=== PATIENT | female | born 1940 | race Caucasian/White ===

== ENCOUNTER 2019-04-13 02:50 | Inpatient (IN) | payer MEDICARE, OTHER ==
[~2019-04-13] VITALS: Ht 170.2 cm; Wt 81.8 kg
[2019-04-13] MEDS ORDERED: ondansetron/PF 4mg/2ml inj IV ONE (03:20)
[2019-04-13] MEDS ORDERED: normal saline 1000ML IV soln IVB ONE (03:20)
[2019-04-13 03:33] LABS: BASOPHILS % (AUTO) 0.3 % (0-1); EOSINOPHILS # (AUTO) 0.4 X10'3 (0-0.9); EOSINOPHILS % (AUTO) 5.4 % (0-6); HEMOGLOBIN 13.8 g/dl (12.0-16.0); LYMPHOCYTES # (AUTO) 2.4 X10'3 (1.1-4.8); LYMPHOCYTES % (AUTO) 31.1 % (21-51); MEAN CORPUSCULAR HGB CONC 33.8 g/dL (33.0-36.5); MEAN CORPUSCULAR VOLUME 94.8 FL (78-98); MONOCYTES # (AUTO) 0.6 X10'3 (0-0.9); MONOCYTES % (AUTO) 7.8 % (2-12); NEUTROPHILS # (AUTO) 4.2 X10'3 (1.8-7.7); NEUTROPHILS % (AUTO) 55.4 % (42-75); PLATELET COUNT 176 X10'3 (140-440); RED BLOOD COUNT 4.32 X10'6 (4.20-5.60); RED CELL DISTRIBUTION WIDTH 13.4 % (11.5-14.5); WHITE BLOOD COUNT 7.6 X10'3 (4.5-11.0)
[2019-04-13 03:44] LABS: PARTIAL THROMBOPLASTIN TIME 24 SECONDS (22-32)
[2019-04-13 03:50] LABS: ALANINE AMINOTRANSFERASE 30 U/L (12-78); ALBUMIN 4.1 G/DL (3.4-5.0); ALBUMIN/GLOBULIN RATIO 1.1 (1.1-1.5); ALKALINE PHOSPHATASE 74 IU/L (46-116); ANION GAP 12 (8-16); ASPARTATE AMINO TRANSFERASE 23 U/L (10-37); BILIRUBIN,TOTAL 0.4 MG/DL (0.1-1.0); BLOOD UREA NITROGEN 14 MG/DL (7-18); CALCIUM 10.2 MG/DL (8.5-10.1); CHLORIDE 102 MMOL/L (99-107); CREATININE 1.08 MG/DL (0.40-0.90); GLUCOSE 175 MG/DL (70-104); POTASSIUM 3.8 MMOL/L (3.5-5.1); SODIUM 140 MMOL/L (135-145); TOTAL CARBON DIOXIDE 26.4 MMOL/L (24-32); TOTAL PROTEIN 7.9 G/DL (6.4-8.2); eGFR 49 ML/MIN
[2019-04-13 04:01] LABS: MAGNESIUM 1.8 MG/DL (1.5-2.4); TROPONIN I < 0.04 NG/ML (0.0-0.05)
[2019-04-13 04:25] LABS: CLARITY,URINE SLIGHTLY CLOUDY (Clear); COLOR,URINE YELLOW (Yellow); GLUCOSE, URINE NEGATIVE (Neg); KETONES,URINE NEGATIVE (Neg); LEUKOCYTE ESTERASE ,URINE SMALL (Neg); NITRITES, URINE NEGATIVE (Neg); OCCULT BLOOD,URINE NEGATIVE (Neg); PH,URINE 6.5 (4.8-8.0); PROTEIN,URINE 30 mg/dl (Neg); UROBILINOGEN,URINE 0.2 E.U/dL (0.2-1.0)
[2019-04-13 04:28] LABS: UA COLLECTION TYPE CLN CATCH MIDSTREAM
[2019-04-13 04:33] LABS: BACTERIA,URINE NONE SEEN /HPF (Neg); RBC,URINE 0-2 /HPF (0-2); SQUAMOUS EPITHELIAL CELL,UR FEW /LPF (FEW); TRANSITIONAL EPI CELLS,URINE FEW /HPF
[2019-04-13] MEDS ORDERED: diltiazem 5mg/ml 5ml inj. IV ONE (04:40)
[2019-04-13] MEDS ORDERED: OLME40TA13 PO (04:45)
[2019-04-13] MEDS ORDERED: AMLO5TAB4 PO (04:45)
[2019-04-13] MEDS ORDERED: ALB0.5UD IH (04:46)
[2019-04-13] MEDS ORDERED: ALBU8.5H8 IH (04:46)
[2019-04-13] MEDS ORDERED: LEVO50TA PO (04:46)
[2019-04-13] MEDS ORDERED: LIOT5TAB10 PO (04:46)
[2019-04-13 05:10] LABS: D-DIMER 0.22 MG/L FEU (0-0.50)
--- NOTE | 2019-04-13 05:17 | NUR ---
Hospitalist at bedside.
--- NOTE | 2019-04-13 05:28 | NUR ---
Patient up to bedside commode
[2019-04-13] MEDS ORDERED: magnesium hydroxide 30ml (MOM) UD suspension PO PRN (05:30)
[2019-04-13] MEDS ORDERED: mag hydrox/Alum hydrox/simeth 30ml oral suspension PO PRN (05:30)
[2019-04-13] MEDS ORDERED: ondansetron/PF 4mg/2ml inj IV PRN (05:30)
[2019-04-13] MEDS ORDERED: diltiazem 5mg/ml 5ml inj. IV PRN (05:35)
[2019-04-13] MEDS ORDERED: non-formulary drug (Albuterol Sulfate (Proair Hfa) 2 PUFFS) IH PRN (05:35)
--- NOTE | 2019-04-13 05:35 | NUR ---
I have received report from ANNA Molina and had the opportunity to ask questions and assume patient care.
--- NOTE | 2019-04-13 05:50 | NUR ---
Patient arrived to [facility] unit room 311 via wheel chair. patient ambulated from wheelchair to hospital bed. arrived with all known belongings. vital signs stable.
[2019-04-13 06:00] VITALS: BP 141/79
--- NOTE | 2019-04-13 06:30 | NUR ---
Problems reprioritized. Patient report given, questions answered & plan of care reviewed with ANNA Smith.
--- NOTE | 2019-04-13 06:47 | NUR ---
Patient in room MED 311. I have received report from ANNA Thao and had the opportunity to ask questions and assume patient care.
[2019-04-13 08:44] LABS: HEMOGLOBIN A1C 6.7 % (4.5-6.2)
[2019-04-13] MEDS: diltiazem 30mg tablet PO SCH ×3 (09:50→21:00)
[2019-04-13] MEDS: levoTHYROXINE 25mcg tablet PO SCH (09:50)
[2019-04-13] MEDS: liothyronine sod 5mcg tablet PO SCH (09:50)
[2019-04-13] MEDS: heparin, porcine 5000 units/ml vial SQ SCH ×2 (09:52→21:01)
[2019-04-13] MEDS: losartan 50mg tablet PO SCH ×2 (09:52→10:00)
[2019-04-13] MEDS: acetaminophen 325mg tablet PO PRN ×2 (09:56→17:49)
[2019-04-13 11:00] VITALS: BP 142/72
[2019-04-13 15:00] VITALS: BP 147/62
[2019-04-13 18:00] VITALS: BP 128/54
[2019-04-13] MEDS ORDERED: metoprolol tartrate 1mg/ml inj IV PRN (19:25)
[2019-04-13] MEDS ORDERED: regadenoson 0.4mg/5ml syringe IV PRN (19:25)
[2019-04-13] MEDS ORDERED: nitroGLYCERIN 0.4mg SUBLingual tab SL PRN (19:25)
[2019-04-13] MEDS ORDERED: aminophylline 250mg/10ml inj. IV PRN (19:25)
[2019-04-13] MEDS: albuterol 2.5 MG/3 ML nebule NEB PRN (19:48)
--- NOTE | 2019-04-13 20:27 | NUR ---
Called Pharmacy to reschedule the cardizem dose. The pharmacist said its okay to give it on the scheduled although the previous dose was give at 1849.
[2019-04-13 22:00] VITALS: BP 119/54
[2019-04-14] VITALS (19 sets, daily range): BP systolic 114–176; BP diastolic 52–83
[2019-04-14] MEDS: diltiazem 30mg tablet PO SCH ×4 (03:32→19:49)
[2019-04-14] MEDS: albuterol 2.5 MG/3 ML nebule NEB PRN ×3 (04:04→20:16)
[2019-04-14 05:44] LABS: BASOPHILS % (AUTO) 0.5 % (0-1); EOSINOPHILS # (AUTO) 0.6 X10'3 (0-0.9); EOSINOPHILS % (AUTO) 8.4 % (0-6); HEMATOCRIT 37.7 % (35.0-45.0); HEMOGLOBIN 12.9 g/dl (12.0-16.0); LYMPHOCYTES # (AUTO) 2.4 X10'3 (1.1-4.8); MEAN CORPUSCULAR HEMOGLOBIN 32.2 PG (27.0-31.0); MEAN CORPUSCULAR HGB CONC 34.2 g/dL (33.0-36.5); MEAN CORPUSCULAR VOLUME 94.1 FL (78-98); MEAN PLATELET VOLUME 8.2 FL (7.4-10.4); MONOCYTES # (AUTO) 0.5 X10'3 (0-0.9); MONOCYTES % (AUTO) 7.1 % (2-12); NEUTROPHILS # (AUTO) 3.5 X10'3 (1.8-7.7); PLATELET COUNT 169 X10'3 (140-440); RED BLOOD COUNT 4.01 X10'6 (4.20-5.60); RED CELL DISTRIBUTION WIDTH 13.6 % (11.5-14.5); WHITE BLOOD COUNT 6.9 X10'3 (4.5-11.0)
--- NOTE | 2019-04-14 05:52 | NUR ---
[place] documentation: I have reviewed and agree with all interventions, assessments performed and documented by Glenna Mendoza RN.
[2019-04-14 06:04] LABS: ALANINE AMINOTRANSFERASE 24 U/L (12-78); ALBUMIN 3.3 G/DL (3.4-5.0); ALKALINE PHOSPHATASE 59 IU/L (46-116); ANION GAP 6 (8-16); ASPARTATE AMINO TRANSFERASE 20 U/L (10-37); BILIRUBIN,TOTAL 0.4 MG/DL (0.1-1.0); BLOOD UREA NITROGEN 15 MG/DL (7-18); BUN/CREATININE RATIO 14.6 (6.6-38.0); CALCIUM 9.1 MG/DL (8.5-10.1); CHLORIDE 106 MMOL/L (99-107); CHOL/HDL RATIO 6.5 (0.00-4.99); CHOLESTEROL 305 MG/DL (0-200); CREATININE 1.03 MG/DL (0.40-0.90); GLUCOSE 147 MG/DL (70-104); HDL CHOLESTEROL 47 MG/DL (35-60); LDL CHOLESTEROL 208 MG/DL (50-100); POTASSIUM 3.9 MMOL/L (3.5-5.1); SODIUM 141 MMOL/L (135-145); TOTAL CARBON DIOXIDE 29.4 MMOL/L (24-32); TOTAL PROTEIN 6.6 G/DL (6.4-8.2); TRIGLYCERIDES 279 MG/DL (20-135); eGFR 52 ML/MIN
--- NOTE | 2019-04-14 06:12 | NUR ---
Gave report to Yun. Answered all the questions.
[2019-04-14] MEDS ORDERED: aspirin 325mg tablet, delayed-release (Ecotrin) PO SCH (08:00)
[2019-04-14] MEDS: liothyronine sod 5mcg tablet PO SCH (08:15)
[2019-04-14] MEDS: levoTHYROXINE 25mcg tablet PO SCH (08:15)
[2019-04-14] MEDS: heparin, porcine 5000 units/ml vial SQ SCH ×2 (08:28→19:50)
[2019-04-14] MEDS ORDERED: normal saline 500ml IV soln 500 ML IV SCH (09:55)
[2019-04-14] MEDS ORDERED: metoprolol tartrate 1mg/ml inj IV PRN (09:55)
[2019-04-14] MEDS ORDERED: DOBUTamine-DoBUTrex 500mg/D5W 250 ML IV ONE (09:55)
[2019-04-14] MEDS ORDERED: atropine 0.1mg/ml 10ml syringe IV PRN (09:55)
[2019-04-14] MEDS ORDERED: nitroGLYCERIN 0.4mg SUBLingual tab SL PRN (09:55)
--- NOTE | 2019-04-14 18:00 | NUR ---
Patient in room MED 311. I have received report from AL CASTILLO and had the opportunity to ask questions and assume patient care.
[2019-04-14] MEDS ORDERED: APIX5TAB3 PO (18:41)
[2019-04-14] MEDS ORDERED: DILT-36 PO (18:41)
--- NOTE | 2019-04-14 18:41 | NUR ---
Problems reprioritized. Patient report given, questions answered & plan of care reviewed with ANNA Elaine.
--- NOTE | 2019-04-14 20:10 | NUR ---
sent page to RT, "Room 311 [place] requesting PRN breathing treatment, thank you"
--- NOTE | 2019-04-14 20:46 | NUR ---
Prescriptions called into [facility] on [address], [place].
--- NOTE | 2019-04-14 21:10 | NUR ---
PT STABLE, IV DC'D, DISCHARGED WITH FAMILY AND WHEELED DOWN IN WHEELCHAIR
== END 2019-04-14 21:10 | disposition home or self-care (01) | DRG 310 ==
LOC: ER 02:51 → ED HOLD 05:50 → MED 3N 06:10
PROVIDERS: ADMIT Internal Medicine; ATTEND Family Medicine
PROC: 4A02XM4 Measurement of Cardiac Total Activity, External Approach (ICD-10-PCS; principal; 2019-04-14)
PROC: 3E073KZ Introduction of Other Diagnostic Substance into Coronary Artery, Percutaneous Approach (ICD-10-PCS; 2019-04-14)
DX: I48.91 Unspecified atrial fibrillation (principal); I10 Essential (primary) hypertension; E03.9 Hypothyroidism, unspecified; J45.909 Unspecified asthma, uncomplicated; Z79.52 Long term (current) use of systemic steroids; Z87.891 Personal history of nicotine dependence; Z88.0 Allergy status to penicillin; Z79.84 Long term (current) use of oral hypoglycemic drugs
CPT/HCPCS: 36415; 71045; 78452; 80053; 80061; 81001; 83036; 83735; 83880; 84484; 85025; 85379; 85610; 85730; 87081; 87088; 93005; 93017; 93306; 94640; 94760; 96361; 96374; 96375; 99285; A9500; G0378; J1250; J1644; J2405; J3490; J7040